=== PATIENT | female | born 1985 | race American Indian/Alaskan Native ===

== ENCOUNTER 2017-04-14 10:51 | Emergency (ER) | payer MEDICAID ==
[2017-04-14 11:28] LABS: Basophils % (Auto) 0.9 % (0.0-1.8); Eosinophils % (Auto) 1.2 % (0.0-4.3); Hematocrit 36.5 % (30.3-42.9); Hemoglobin 12.2 gm/dl (10.1-14.3); Mean Corpuscular HGB Conc 34 % (30-34); Mean Corpuscular Hemoglobin 35 pg (28-32); Mean Corpuscular Volume 104 fl (79-97); Platelet Count 279 K/mm3 (140-440); Red Cell Distribution Width 13.4 % (13.2-15.2); White Blood Count 7.7 K/mm3 (4.5-11.0)
[2017-04-14 12:43] LABS: Bilirubin,Urine NEG (Negative); Blood,Urine MOD (Negative); Ketones,Urine TR mg/dL (Negative); Leukocyte Esterase,Urine NEG (Negative); Mucus,Urine FEW /HPF; Nitrite,Urine NEG (Negative); Protein,Urine <15 mg/dL mg/dL (Negative); Urobilinogen,Urine < 2.0 mg/dL (<2.0)
--- NOTE | 2017-04-14 15:13 | Ultrasound Report ---
ULTRASOUND OB LESS THAN 14 WEEKS - TRANSABDOMINAL AND TRANSVAGINAL INDICATION: Vaginal bleeding. Serum beta-hCG of 1,291 units. COMPARISON: None similar during this gestation. FINDINGS: Transabdominal and transvaginal pelvic sonography performed in this patient with LMP uncertain, though possibly 02/13/2017 and estimated menstrual age of 8 weeks and 4 day and EDC of 11/20/2017. An retroverted uterus measuring approximately 9 x 5 x 6.5 cm demonstrates slightly heterogeneous endometrium measuring 1.5 cm at the fundus, endovaginal image 10. Small nabothian cysts. No significant pelvic free fluid. Right ovary is 2.4 x 1.2 x 2.3 cm and demonstrates few small non-shadowing 1-2 mm nonspecific echogenicities as on endovaginal images 26-28, amongst others. Physiologic 3.2 x 2.1 x 1.7 cm left ovary with few small follicles. CONCLUSION: 1. No sonographic evidence of a viable intrauterine gestation at this time with slightly heterogeneous fundal endometrium, as described. 2. Both ovaries identified, as above. Please also correlate clinically for accuracy of the LMP and with followup serum beta-hCG values or imaging, as warranted. Thank you for the opportunity to participate in this patient's care.
--- NOTE | 2017-04-14 18:22 | Emergency Department Report ---
HPI - General Chief Complaint: Vaginal Bleeding Time Seen by Provider: 04/14/17 18:03 - HPI HPI: This is a 31-year-old female who presents to the ED with vaginal bleeding, passing blood clots, LMP February 10. Patient states she had a positive test at home. Patient state her vaginal bleeding is like a cycle. Mild pelvic cramping. Patient has been before and never remember bleeding dislikes early in her . Patient has not yet seen of [facility] for this . Patient denies any fever, chills, night sweats. ED Past Medical Hx - Past Medical History Previous Medical History?: Yes Additional medical history: Vaginal delivery 06-07-2012 - Surgical History Past Surgical History?: No - Family History Family history: hypertension - Social History Smoking Status: Current Every Day Smoker Substance Use Type: Alcohol - Medications Home Medications: Home Medications Medication Instructions Recorded Confirmed Last Taken Type Acetaminophen/Codeine [Tylenol #3] 1 tab PO Q6H PRN #15 tab 07/05/15 Unknown Rx Sulfamethoxazole/Trimethoprim 1 each PO BID #20 tablet 07/05/15 Unknown Rx [Bactrim DS TAB] ED Review of Systems ROS: Stated complaint: POSS MISCARRIAGE Other details as noted in HPI Comment: All other systems reviewed and negative Respiratory: denies: cough, shortness of breath, wheezing Cardiovascular: denies: chest pain, palpitations Endocrine: no symptoms reported Gastrointestinal: as per HPI, nausea Genitourinary: abnormal menses Physical Exam - Physical Exam Vital Signs: Vital Signs 04/14/17 10:56 Temperature 98.6 F Pulse Rate 81 Respiratory 18 Rate Blood Pressure 129/85 O2 Sat by Pulse 100 Oximetry Physical Exam: Physical Exam: - General Limitations: No Limitations General appearance: alert, in no apparent distress, - Head Head exam: Present: atraumatic, normocephalic - Eye Eye exam: Present: normal appearance - ENT ENT exam: Present: mucous membranes moist - Neck Neck exam: Present: normal inspection - Respiratory Respiratory exam: Present: normal lung sounds bilaterally. Absent: respiratory distress - Cardiovascular Cardiovascular Exam: Present: normal rhythm, normal rate. Absent: systolic murmur, diastolic murmur, rubs, gallop - GI/Abdominal GI/Abdominal exam: Present: soft, normal bowel sounds : Refuses exam. - Extremities Exam Extremities exam: Present: normal inspection - Back Exam Back exam: Present: normal inspection - Neurological Exam Neurological exam: Present: alert, oriented X3 - Psychiatric Psychiatric exam: normal affect and mood - Skin Skin exam: Present: warm, dry, intact, normal color. Absent: rash ED Course Vital Signs 04/14/17 10:56 Temperature 98.6 F Pulse Rate 81 Respiratory 18 Rate Blood Pressure 129/85 O2 Sat by Pulse 100 Oximetry - Reevaluation(s) Reevaluation #1: 04/14/17 18:20 Explained patient her labs and ultrasound results in detail. She was advised to return to ED in 2 days to repeat hCG and ultrasound and to follow-up with [facility]. Patient was offered pelvic exam to evaluate the degree of hemorrhage, but she refused stating that her fianc is already on the way to come pick her up. 04/14/17 18:22 ED Medical Decision Making - Lab Data Result diagrams: 04/14/17 11:11 Critical care attestation.: If time is entered above; I have spent that time in minutes in the direct care of this critically ill patient, excluding procedure time. ED Disposition Clinical Impression: Threatened miscarriage Disposition: DC-01 TO HOME OR SELFCARE Is pt being admited?: No Does the pt Need Aspirin: No Condition: Stable Instructions: Threatened Miscarriage (ED) Referrals: PRIMARY CAREMD [Primary Care Provider] - 3-5 Days MUNA DEVINE MD [Staff Physician] - 3-5 Days
[2017-04-14 18:26] VITALS: BP 135/89
== END 2017-04-14 18:32 | disposition home or self-care (01) ==
LOC: ED 10:51
DX: O20.0 Threatened abortion (principal); F17.200 Nicotine dependence, unspecified, uncomplicated
CPT/HCPCS: 36415; 76801; 76817; 81001; 84702; 84703; 85025; 86850; 86900; 86901